=== PATIENT | female | born 1935 | race Caucasian/White ===

== ENCOUNTER 2017-12-07 02:25 | Emergency (ER) | payer OTHER ==
[~2017-12-07] VITALS: Ht 167.6 cm; Wt 59.0 kg
[~2017-12-07 02:25] MED LIST: NEU300; ULT50
[2017-12-07 02:33] VITALS: Ht 167.6 cm; Wt 59.0 kg
[2017-12-07 03:03] LABS: BASOPHIL % 0.4 % (0-2)
[2017-12-07 03:06] LABS: PLATELET COUNT 181 x10^3mcL (130-400); RED CELL DISTRIBUTION WIDTH 12.9 % (11.5-14.5)
[2017-12-07 03:10] LABS: CALCIUM 9.3 mg/dL (8.5-10.1); CHLORIDE SERUM 106 mmol/L (98-107); CREATININE SERUM 0.9 mg/dL (0.6-1.0); GLUCOSE SERUM 101 mg/dL (74-106); POTASSIUM SERUM 3.8 mmol/L (3.5-5.1); SODIUM SERUM 141 mmol/L (136-145)
[2017-12-07 03:14] LABS: ALBUMIN 3.7 g/dL (3.4-5.0); ALKALINE PHOSPHATASE 86 U/L (46-116); ALT/SGPT 25 U/L (14-59); AST/SGOT 36 U/L (15-37); BILIRUBIN TOTAL 0.31 mg/dL (0.20-1.00); CHOLESTEROL 169 mg/dL (<200); TOTAL PROTEIN, SERUM 7.7 g/dL (6.4-8.2)
[2017-12-07] MEDS ORDERED: TRAMADOL HCL50 MG PO (05:12)
[2017-12-07] MEDS ORDERED: NEU300 PO (05:12)
[2017-12-07 06:05] VITALS: BP 118/70
== END 2017-12-07 06:05 | disposition home or self-care (01) ==
LOC: ED 02:25
PROVIDERS: Specialist
DX: R51 Headache (principal); M54.2 Cervicalgia; M19.90 Unspecified osteoarthritis, unspecified site; Z88.0 Allergy status to penicillin; Z88.6 Allergy status to analgesic agent
CPT/HCPCS: G0480; J3010; Q0092; Q0162; Q9967

== ENCOUNTER 2019-11-19 18:51 | Emergency (ER) | payer OTHER, SELFPAY ==
[~2019-11-19 18:51] MED LIST changes: +NEU300 PO; +TRAMADOL HCL50 MG PO
[2019-11-19 20:23] LABS: BASOPHIL % 0.4 % (0-2); PLATELET COUNT 125 x10^3mcL (130-400)
[2019-11-19 20:37] LABS: CALCIUM 8.4 mg/dL (8.5-10.1); CARBON DIOXIDE 29.1 mmol/L (21-32); CHLORIDE SERUM 105 mmol/L (98-107); CREATININE SERUM 1.1 mg/dL (0.6-1.0); GLUCOSE SERUM 100 mg/dL (74-106); POTASSIUM SERUM 3.8 mmol/L (3.5-5.1); SODIUM SERUM 139 mmol/L (136-145)
[2019-11-19 20:49] LABS: ALKALINE PHOSPHATASE 57 U/L (46-116); ALT/SGPT 11 U/L (14-59); AST/SGOT 30 U/L (15-37); BILIRUBIN TOTAL 0.7 mg/dL (0.20-1.00); LIPASE 70 IU/L (73-393); TOTAL PROTEIN, SERUM 6.3 g/dL (6.4-8.2)
[2019-11-19 20:50] LABS: ALBUMIN 2.9 g/dL (3.4-5.0); AMYLASE 22 U/L (25-115)
[2019-11-19 21:23] LABS: UA SPECIFIC GRAVITY 1.015 (1.005-1.035); microscopic required? YES; urine erythrocyte 2+ (NEGATIVE)
[2019-11-19 22:14] VITALS: BP 109/44
== END 2019-11-19 22:14 | disposition home or self-care (01) ==
LOC: ED 18:51
PROVIDERS: Emergency Medicine
DX: N30.90 Cystitis, unspecified without hematuria (principal); M19.90 Unspecified osteoarthritis, unspecified site; Z88.0 Allergy status to penicillin
CPT/HCPCS: J0696; J1885; J7030